=== PATIENT | female | born 1965 | race African-American/Black ===

== ENCOUNTER 2016-12-18 10:18 | Outpatient (RCR) | payer MEDICARE, OTHER ==
--- NOTE | 2016-11-28 09:13 | IOP Physician Progress Note ---
IOP Physician Progress Note Problem: other (specify) Description of Symptoms: Anxiety remains high, but the patient is working on it. She is still anxious about taking the bus, and has had to get off at times and go home. Diagnosis [place] I: Schizoaffective disorder with anxiety and panics [place]: II deferred [place]: III sciatica [place]: IV easiily destabilized [place]: V 31-40 Progress Since Last Eval: The patient is apparently really trying, but having a hard time. Current Med Management: Given refill celexa and clonazepam Home Meds: Reported Medications Ibuprofen* (MOTRIN*) 800 Mg Tablet, 800 MG ORAL bid, #30 TAB 0 Refills 03/11/15 Carisoprodol* (SOMA*) 350 Mg Tablet, 350 MG PO hs, TAB 03/11/15 Calcium Carbonate (CALCIUM) 500 Mg Tab.chew, 500 MG PO daily, TAB 06/29/14 [place]-3 Fatty Acids (FISH OIL) 300 Mg Capsule, 300 MG PO daily, CAP 04/13/14 Multivitamin (DAILY VITAMIN) 1 Each Tablet, 1 TAB ORAL DAILY, TAB 0 Refills 02/25/14 Clonazepam* (KLONOPIN*) 0.5 Mg Tablet, 1 MG ORAL Q6H Y for For Anxiety, #120 TAB 0 Refills 11/27/13 Citalopram Hydrobromide (CELEXA) 40 Mg Tablet, 40 MG ORAL DAILY, TAB 11/25/13 Appearance: well groomed Affect: labile Mood: anxious Thought Process: no abnormalities Thought Content: no abnormalities Suicidal/Homicidal Ideations: not present Risk Assessment: low risk at this time Cognition: no abnormalities Accomplishments before DC: The patient needs to continue to work on developing skills to soothe herself. Comments There are no physical problems at this time. ADAM BAHENA Nov 28, 2016 09:13
[~2016-12-18 10:18] MED LIST: CALCIUM500 M3 PO; CELEXA20 MG PO; CELEXA40 MG ORAL; CYCLOBENZAPRINE10 MG ORAL; DAILY VITAMIN1 EAC4 ORAL; DIAZEPAM2 MG PO; DIAZEPAM5 MG ORAL; DICLOFENAC SODI75 MG ORAL; FISH OIL300 M1 PO; IBUPROFEN600 MG ORAL; IBUPROFEN800 MG ORAL; KLONOPIN0.5 MG ORAL; NORCO1 E1 ORAL; QUETIAPINE FUMA25 MG ORAL; SOMA350 MG PO; VICODIN 5-5001 EACH ORAL
--- NOTE | 2016-12-24 09:09 | IOP Physician Progress Note ---
IOP Physician Progress Note Description of Symptoms: Says she is lacking energy, feels depressed, spent the weekend in bed. But she also thinks she may be too hard on herself. Diagnosis [place] I: Schizoaffective disorder with anxiety and panics [place]: II deferred [place]: III sciatica [place]: IV easiily destabilized [place]: V 31-40 Progress Since Last Eval: About the same, but very self critical. Current Med Management: There are no plans to change. Home Meds: Reported Medications Ibuprofen* (MOTRIN*) 800 Mg Tablet, 800 MG ORAL bid, #30 TAB 0 Refills 03/11/15 Carisoprodol* (SOMA*) 350 Mg Tablet, 350 MG PO hs, TAB 03/11/15 Calcium Carbonate (CALCIUM) 500 Mg Tab.chew, 500 MG PO daily, TAB 06/29/14 [place]-3 Fatty Acids (FISH OIL) 300 Mg Capsule, 300 MG PO daily, CAP 04/13/14 Multivitamin (DAILY VITAMIN) 1 Each Tablet, 1 TAB ORAL DAILY, TAB 0 Refills 02/25/14 Clonazepam* (KLONOPIN*) 0.5 Mg Tablet, 1 MG ORAL Q6H Y for For Anxiety, #120 TAB 0 Refills 11/27/13 Citalopram Hydrobromide (CELEXA) 40 Mg Tablet, 40 MG ORAL DAILY, TAB 11/25/13 Appearance: well groomed Affect: labile Mood: depressed Thought Process: no abnormalities Thought Content: no abnormalities Suicidal/Homicidal Ideations: not present Risk Assessment: low risk at this time Cognition: no abnormalities Accomplishments before DC: The patient needs to enhance her self understanding, and challenge hersel fto do what she wants. Comments There are no physical problems that are acute. ADAM BAHENA Dec 24, 2016 09:09
== END 2017-01-04 | disposition home or self-care (01) ==
LOC: PTY 10:18
DX: M54.32 Sciatica, left side (principal); M54.31 Sciatica, right side; Z91.018 Allergy to other foods
CPT/HCPCS: 97162; G8978; G8979

== ENCOUNTER 2017-01-11 09:28 | Outpatient (RCR) | payer MEDICARE, OTHER ==
--- NOTE | 2017-01-21 09:09 | IOP Physician Progress Note ---
IOP Physician Progress Note Problem: depression Diagnosis [place] I: Bipolar disorder with depression anxiety. [place]: II deferred [place]: III sciatica [place]: IV sensitive to stressors [place]: V 31-40 Progress Since Last Eval: The patient says that she has been stressed in the process of writing a letter to her () mother, who has disappointed her. Current Med Management: There are no plans to change. Home Meds: Reported Medications Ibuprofen* (MOTRIN*) 800 Mg Tablet, 800 MG ORAL bid, #30 TAB 0 Refills 03/11/15 Carisoprodol* (SOMA*) 350 Mg Tablet, 350 MG PO hs, TAB 03/11/15 Calcium Carbonate (CALCIUM) 500 Mg Tab.chew, 500 MG PO daily, TAB 06/29/14 [place]-3 Fatty Acids (FISH OIL) 300 Mg Capsule, 300 MG PO daily, CAP 04/13/14 Multivitamin (DAILY VITAMIN) 1 Each Tablet, 1 TAB ORAL DAILY, TAB 0 Refills 02/25/14 Clonazepam* (KLONOPIN*) 0.5 Mg Tablet, 1 MG ORAL Q6H Y for For Anxiety, #120 TAB 0 Refills 11/27/13 Citalopram Hydrobromide (CELEXA) 40 Mg Tablet, 40 MG ORAL DAILY, TAB 11/25/13 Appearance: well groomed Affect: constricted Mood: depressed Thought Process: no abnormalities Thought Content: no abnormalities Suicidal/Homicidal Ideations: not present Risk Assessment: low risk at this time Cognition: no abnormalities Accomplishments before DC: Needs to find a way to deal with stressors without needing benzos to "shield" her. Comments No problems are acute. ADAM BAHENA Jan 21, 2017 09:09
--- NOTE | 2017-01-28 09:28 | IOP Physician Progress Note ---
IOP Physician Progress Note Problem: depression Description of Symptoms: Having bad dreams which she relates to the letter she is writing to her mother. Uncomfortable about it, so she is staying in the house more. Diagnosis [place] I: Bipolar disorder with depression anxiety. [place]: II deferred [place]: III sciatica [place]: IV sensitive to stressors [place]: V 31-40 Progress Since Last Eval: She feels she is going backwards. Current Med Management: There are no plans to change. Home Meds: Reported Medications Ibuprofen* (MOTRIN*) 800 Mg Tablet, 800 MG ORAL bid, #30 TAB 0 Refills 03/11/15 Carisoprodol* (SOMA*) 350 Mg Tablet, 350 MG PO hs, TAB 03/11/15 Calcium Carbonate (CALCIUM) 500 Mg Tab.chew, 500 MG PO daily, TAB 06/29/14 [place]-3 Fatty Acids (FISH OIL) 300 Mg Capsule, 300 MG PO daily, CAP 04/13/14 Multivitamin (DAILY VITAMIN) 1 Each Tablet, 1 TAB ORAL DAILY, TAB 0 Refills 02/25/14 Clonazepam* (KLONOPIN*) 0.5 Mg Tablet, 1 MG ORAL Q6H Y for For Anxiety, #120 TAB 0 Refills 11/27/13 Citalopram Hydrobromide (CELEXA) 40 Mg Tablet, 40 MG ORAL DAILY, TAB 11/25/13 Appearance: well groomed Affect: other Mood: anxious Thought Process: no abnormalities Thought Content: no abnormalities Suicidal/Homicidal Ideations: not present Risk Assessment: low risk at this time Cognition: no abnormalities Accomplishments before DC: The patient needs to work on self esteem and working on handling stressofrs. Comments There ar no physical problems. ADAM BAHENA Jan 28, 2017 09:28
== END 2017-02-03 | disposition home or self-care (01) ==
LOC: PTY 09:28
DX: M54.31 Sciatica, right side (principal); M54.32 Sciatica, left side
CPT/HCPCS: 97110; G0283